=== PATIENT | female | born 1990 | race African-American/Black ===

== ENCOUNTER 2016-12-16 09:40 | Emergency (ER) | payer OTHER ==
[2016-12-16 09:55] VITALS: BP 115/71; PULSE 80; TEMP 98.3; BMI 25.7
[2016-12-16] MEDS ORDERED: IBUPROFEN 400 MG TABLET (FP) PO ONE ×2 (13:05→13:14)
[2016-12-16] MEDS ORDERED: CYCLOBENZAPRINE HCL 10 MG TABLET (FP) PO ONE (13:05)
[2016-12-16] MEDS ORDERED: CYCLOBENZAPRINE HCL 10 MG TABLET (FP) ONE (13:13)
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
--- NOTE | 2016-12-17 00:21 | EKG ---
Test Reason : Blood Pressure : / mmHG Vent. Rate : 078 BPM Atrial Rate : 078 BPM P-R Int : 160 ms QRS Dur : 076 ms QT Int : 372 ms P-R-T Axes : 068 036 037 degrees QTc Int : 424 ms NORMAL SINUS RHYTHM POSSIBLE LEFT ATRIAL ENLARGEMENT BORDERLINE ECG NO PREVIOUS ECGS AVAILABLE Confirmed by ALAN RICHARD, CHERELLE ([id number]) on 12/17/2016 12:21:18 AM Referred By: Confirmed By:CHERELLE PHILLIPS MD
== END 2016-12-16 15:36 | disposition home or self-care (01) ==
LOC: JER 09:40 → JERFT 09:40 → JER 15:36
DX: S13.4XXA Sprain of ligaments of cervical spine, initial encounter (principal); V43.52XA Car driver injured in collision with other type car in traffic accident, initial encounter; Y93.89 Activity, other specified; Y92.410 Unspecified street and highway as the place of occurrence of the external cause
CPT/HCPCS: 71020-TC; 72050-TC; 72070-TC; 72100-TC; 84703; 93005; 93010; 99282-25